=== PATIENT | male | born 1980 | race Caucasian/White ===

== ENCOUNTER 2020-06-21 14:30 | Emergency (ER) | payer SELFPAY ==
[~2020-06-21] VITALS: Ht 175.3 cm; Wt 75.0 kg
[2020-06-21 14:36] VITALS: TEMP 98.1
[2020-06-21 15:09] LABS: HEMATOCRIT 41.8 % (42.0-52.0); HEMOGLOBIN 14.7 g/dl (13.5-18.0); MEAN CELL VOLUME 92 fl (80.0-100.0); MEAN CORPUSCULAR HEMOGLOBIN 32 pg (27.0-31.0); MEAN CORPUSCULAR HGB CONC 35 g/dl (33.0-37.0); MEAN PLATELET VOLUME 10.6 fl (7.4-10.4); PLATELET COUNT 273 K/mm3 (130-400); RED BLOOD COUNT 4.55 M/mm3 (4.20-5.60); REDCELL DISTRIBUTION WIDTH-CV 12.7 % (11.5-14.5)
[2020-06-21 15:20] LABS: ALBUMIN 4.6 gm/dL (3.5-5.0); BILIRUBIN,TOTAL 0.9 mg/dL (0.0-1.0); CALCIUM 9.8 mg/dL (8.4-10.2); CREATININE, serum 0.76 (0.66-1.25); POTASSIUM 3.3 mmol/L (3.4-5.0); TOTAL PROTEIN 7.4 gm/dL (6.4-8.2)
[2020-06-21 15:56] LABS: BAND 1 % (0-10); EOSINOPHIL 2 % (0-4); NEUTROPHILS 57 % (42.0-75.2); PLATELET ESTIMATE NORMAL (NORMAL)
[2020-06-21 15:57] LABS: LYMPHOCYTE 35 % (20.0-51.0)
[2020-06-21] MEDS ORDERED: PHENERGAN 25 TA25 MG PO (16:31)
[2020-06-21] MEDS ORDERED: NEXIUM 20MG20 MG PO (16:31)
[2020-06-21 18:00] VITALS: BP 148/82; PULSE 84
== END 2020-06-21 18:00 | disposition home or self-care (01) ==
LOC: COL.ER 14:30
PROVIDERS: Emergency Medicine
DX: K29.00 Acute gastritis without bleeding (principal); R10.13 Epigastric pain; Z88.1 Allergy status to other antibiotic agents
CPT/HCPCS: C9113; J1200; J2550; J7030

== ENCOUNTER 2020-11-20 09:25 | Emergency (ER) | payer BC ==
[~2020-11-20] VITALS: Ht 175.3 cm; Wt 72.7 kg
[~2020-11-20 09:25] MED LIST: NEXIUM 20MG20 MG PO; PHENERGAN 25 TA25 MG PO
[2020-11-20 09:30] VITALS: BP 144/86; TEMP 98.2
[2020-11-20] MEDS ORDERED: PEPCID COMPLETE1 CTB PO (09:41)
[2020-11-20] MEDS ORDERED: IBU600 MG PO (09:42)
[2020-11-20 10:39] VITALS: PULSE 86
== END 2020-11-20 10:39 | disposition home or self-care (01) ==
LOC: COL.ER 09:25
DX: S83.412A Sprain of medial collateral ligament of left knee, initial encounter (principal); F17.210 Nicotine dependence, cigarettes, uncomplicated; Z88.1 Allergy status to other antibiotic agents; X50.1XXA Overexertion from prolonged static or awkward postures, initial encounter

== ENCOUNTER 2021-06-07 11:50 | Emergency (ER) | payer SELFPAY ==
[~2021-06-07] VITALS: Ht 175.3 cm; Wt 79.5 kg
[~2021-06-07 11:50] MED LIST changes: +IBU600 MG PO; +PEPCID COMPLETE1 CTB PO
[2021-06-07 12:00] VITALS: TEMP 98.9
[2021-06-07 12:44] VITALS: BP 125/93; PULSE 76
== END 2021-06-07 12:44 | disposition home or self-care (01) ==
LOC: COL.ER 11:50
DX: R09.81 Nasal congestion (principal); J45.909 Unspecified asthma, uncomplicated; Z20.822 Contact with and (suspected) exposure to COVID-19

== ENCOUNTER 2022-12-11 09:11 | Emergency (ER) | payer SELFPAY ==
[~2022-12-11] VITALS: Ht 175.3 cm; Wt 77.3 kg
[2022-12-11 09:22] VITALS: TEMP 98.1
[2022-12-11 10:29] LABS: HEMATOCRIT 43.6 % (42.0-52.0); HEMOGLOBIN 15.6 g/dl (13.5-18.0); MEAN CELL VOLUME 90 fl (80.0-100.0); MEAN CORPUSCULAR HEMOGLOBIN 32 pg (27-31); MEAN CORPUSCULAR HGB CONC 36 g/dl (33.0-37.0); MEAN PLATELET VOLUME 10.7 fl (7.4-10.4); PLATELET COUNT 282 K/mm3 (130-400); RED BLOOD COUNT 4.83 M/mm3 (4.20-5.60); REDCELL DISTRIBUTION WIDTH-CV 12.7 % (11.5-14.5)
[2022-12-11 10:53] LABS: CALCIUM 9.6 mg/dL (8.4-10.2); CREATININE, serum 0.76 mg/dL (0.72-1.25); POTASSIUM 3.9 mmol/L (3.5-4.5)
[2022-12-11] MEDS ORDERED: CLEOCIN HC150 MG/CAP PO (11:05)
[2022-12-11 11:08] LABS: EOSINOPHIL 1 % (0-4); NEUTROPHILS 54 % (42.0-75.2); PLATELET ESTIMATE NORMAL (NORMAL)
[2022-12-11 11:10] LABS: LYMPHOCYTE 42 % (20.0-51.0)
[2022-12-11 11:34] VITALS: BP 139/97; PULSE 64
== END 2022-12-11 11:34 | disposition home or self-care (01) ==
LOC: COL.ER 09:11
PROVIDERS: Emergency Medicine
DX: K04.7 Periapical abscess without sinus (principal); R22.1 Localized swelling, mass and lump, neck; F17.200 Nicotine dependence, unspecified, uncomplicated; Z88.1 Allergy status to other antibiotic agents
CPT/HCPCS: J1885; Q9967